=== PATIENT | female | born 1965 | race Caucasian/White ===

== ENCOUNTER 2016-06-23 13:09 | Emergency (ER) | payer BC ==
[~2016-06-23] VITALS: Ht 162.6 cm; Wt 73.7 kg
[~2016-06-23 13:09] MED LIST: ADVIL,NUPRIN,M200 MG PO; ASPIR-LOW81 MG PO; BENADRYL25 MG PO; FIORICET 50-301 EACH PO; FLEXERIL5 MG PO; MITRAZOL 2% CRE45 GM TP; MOTRIN800 MG PO; MULTIVITAMIN PO; NAPROSYN500 MG PO; NO MEDS; NOHOMEMEDS; PRAVASTATIN SOD20 MG PO; ULTRACET1 TABLET PO; ULTRAM50 MG PO
[2016-06-23 13:37] VITALS: BP 124/82
[2016-06-23] MEDS ORDERED: MOTRIN800 MG PO (14:52)
== END 2016-06-23 15:36 | disposition home or self-care (01) ==
LOC: EME 13:09
DX: S63.610A Unspecified sprain of right index finger, initial encounter (principal); X50.9XXA Other and unspecified overexertion or strenuous movements or postures, initial encounter; Y93.89 Activity, other specified; Y99.0 Civilian activity done for income or pay; Y92.512 Supermarket, store or market as the place of occurrence of the external cause
CPT/HCPCS: 73130; 99281; 99284

== ENCOUNTER 2016-08-15 07:14 | Emergency (ER) | payer BC ==
[~2016-08-15] VITALS: Ht 162.6 cm; Wt 72.0 kg
[2016-08-15 08:02] LABS: BASOPHIL COUNT 0.1 K/uL (0-0.1); EOSINOPHIL (%) 2.1 % (0-5); EOSINOPHIL COUNT 0.1 K/uL (0-0.3); IMMATURE GRANULOCYTE (%) 0.2 % (0.0-0.7); INSTRUMENT ABS NEUTROPHIL CT 3.7 K/uL; LYMPHOCYTE COUNT 1.9 K/uL (1.0-2.8); MCH 30.1 PG (29.0-34.0); MCHC 34.2 G/DL (30.0-36.0); MEAN PLAT.VOLUME 9.5 uM^3 (9.5-12.4); MONOCYTE (%) 6.8 % (3-12); MONOCYTE COUNT 0.4 K/uL (0-0.8); NEUTROPHIL (%) 59.7 % (45-76); NEUTROPHIL COUNT 3.7 K/uL (1.8-6.4); PLATELET COUNT 313 K/uL (156-360); RBC DIS.WIDTH-CV 11.8 % (11.8-14.6); RBC DIS.WIDTH-SD 38.1 % (39-53); RED BLOOD COUNT 4.32 M/uL (3.80-5.20); WHITE BLOOD COUNT 6.2 K/uL (4.1-10.2)
[2016-08-15 08:21] LABS: ADD MIUA? YES; BILIRUBIN NEGATIVE; BLOOD NEGATIVE; COLOR STRAW ((YELLOW)); GLUCOSE (STRIP) NEGATIVE; KETONES NEGATIVE; LEUKOCYTES TRACE; NITRITE NEGATIVE; PROTEIN (STRIP) NEGATIVE; SPECIFIC GRAVITY 1.006 (1.000-1.030); UROBILINOGEN 0.2 MG/DL (0.2-1.0)
[2016-08-15 08:28] LABS: ANION GAP 11 MEQ/L (2-14); CHLORIDE 105 MEQ/L (99-109); POTASSIUM 3.9 MEQ/L (3.7-5.4); SAMPLE HEMOLYSIS CHECK 0; SAMPLE ICTERIC CHECK 0; SAMPLE LIPEMIA CHECK 0; SODIUM 142 MEQ/L (136-147)
[2016-08-15 08:30] LABS: BACTERIA RARE /HPF; EPITHELIAL CELLS RARE /HPF; MUCUS TRACE /LPF; RED BLOOD CELLS 0-5 /HPF (0-5); UCUL ADDED? NO; WHITE BLOOD CELLS 0-5 /HPF (0-5)
[2016-08-15 08:34] LABS: GFR ESTIMATE (CALCULATED) > 59 mL/min/; GLUCOSE 87 mg/dL (70-99); UREA NITROGEN (BUN) 12 mg/dL (9-23)
[2016-08-15] MEDS ORDERED: TYLENOL WITH C1 EACH PO (09:22)
[2016-08-15] MEDS ORDERED: CIPRO500 MG PO (09:22)
[2016-08-15 10:01] VITALS: BP 148/92
== END 2016-08-15 10:18 | disposition home or self-care (01) ==
LOC: EME 07:14
PROVIDERS: Emergency Medicine
DX: R10.31 Right lower quadrant pain (principal); E78.5 Hyperlipidemia, unspecified
CPT/HCPCS: 74176; 80048; 81003; 85025; 99281; 99285; J1885; J2405; J7030

== ENCOUNTER 2016-09-03 10:54 | Emergency (ER) | payer BC ==
[~2016-09-03] VITALS: Ht 162.6 cm; Wt 72.2 kg
[~2016-09-03 10:54] MED LIST changes: +CIPRO500 MG PO; +TYLENOL WITH C1 EACH PO
[2016-09-03 12:36] LABS: HEMATOCRIT 38.5 % (36.0-46.0); MCH 29.9 PG (29.0-34.0); MCHC 34.3 G/DL (30.0-36.0); MCV 87.3 FL (83-99); MEAN PLAT.VOLUME 9.8 uM^3 (9.5-12.4); PLATELET COUNT 304 K/uL (156-360); RBC DIS.WIDTH-CV 11.9 % (11.8-14.6); RBC DIS.WIDTH-SD 38.4 % (39-53); RED BLOOD COUNT 4.41 M/uL (3.80-5.20); WHITE BLOOD COUNT 6.7 K/uL (4.1-10.2)
[2016-09-03 12:51] LABS: CHLORIDE 105 mEq/L (99-109); POTASSIUM 4.3 mEq/L (3.7-5.4); SODIUM 141 mEq/L (136-147)
[2016-09-03 12:53] LABS: GLUCOSE 78 mg/dL (70-99)
[2016-09-03 12:54] LABS: ANION GAP 14 MEQ/L (2-14)
[2016-09-03 12:57] LABS: GFR ESTIMATE (CALCULATED) > 59 mL/min/; UREA NITROGEN (BUN) 11 mg/dL (9-23)
[2016-09-03 13:26] LABS: ADD MIUA? NO; BILIRUBIN NEGATIVE; BLOOD NEGATIVE; COLOR YELLOW ((YELLOW)); GLUCOSE (STRIP) NEGATIVE; KETONES 5; LEUKOCYTES NEGATIVE; NITRITE NEGATIVE; PROTEIN (STRIP) NEGATIVE; SPECIFIC GRAVITY 1.011 (1.000-1.030); UCUL ADDED? NO; UROBILINOGEN 0.2 MG/DL (0.2-1.0)
[2016-09-03] MEDS ORDERED: BENTYL20 MG PO (15:27)
[2016-09-03] MEDS ORDERED: COLACE100 MG PO (15:27)
[2016-09-03 15:47] VITALS: BP 141/82
== END 2016-09-03 15:49 | disposition home or self-care (01) ==
LOC: EME 10:54
DX: R10.30 Lower abdominal pain, unspecified (principal); K59.09 Other constipation; R30.0 Dysuria; Z87.442 Personal history of urinary calculi; Z90.710 Acquired absence of both cervix and uterus; Z90.49 Acquired absence of other specified parts of digestive tract; E78.5 Hyperlipidemia, unspecified; Z79.82 Long term (current) use of aspirin
CPT/HCPCS: 74020; 76856; 80048; 81003; 85027; 93975; 99281; 99283; J1885